=== PATIENT | male | born 1960 | race Caucasian/White ===

== ENCOUNTER 2018-04-12 21:03 | Inpatient (IN) ==
[2018-04-13] MEDS ORDERED: Acetaminophen 325 MG Tablet PO PRN (04:43)
[2018-04-13] MEDS ORDERED: Aluminum/Magnesium/Simethacone Susp 30 ML UDC PO PRN (04:43)
--- NOTE | 2018-04-13 09:03 | P.HPPSY ---
Provisional Diagnosis Admission Date: April 13, 2018 02:05 [place] I.: 1. Adjustment disorder with mixed disturbance of emotions and conduct Strongly suspect gestural overdose to facilitate admission to the inpatient unit Rule-out carolina tyshawn mood disorder Eve[place] II.: 1. Antisocial personality traits, rule-out Antisocial personality disorder Competence Certification of Person's Competence To Provide Express and Informed Consent I have personally examined Maco Bliss, a person being served at [facility] on, April 13, 2018 0903. Express and informed consent means consent voluntarily given in writing, by a competent person, after sufficient explanation and disclosure of the subject matter involved to enable the person to make a knowing and willful decision without any element of force, fraud, deceit, duress, or other form of constraint or coercion. This person is 18 years of age or older, is not now known to be incompetent to consent to treatment with a guardian advocate, and does not have a health care surrogate or proxy currently making medical treatment decisions. I have found this person to be one of the following: [x] Competent to provide express and informed consent, as defined above, for voluntary admission to this facility and is competent to provide express and informed consent for treatment. He/she has the consistent capacity to make well reasoned, willful, and knowing decisions concerning his or her medical or mental health treatment. The person fully and consistently understands the purpose of the admission for examination/placement and is fully capable of personally exercising all rights assured [place] Incompetent to provide express and informed consent to voluntary admission, and this is incompetent to provide express and informed consent to treatment. The person must be transferred to involuntary status and a petition for a guardian advocate filed with the Circuit Court. [] Refusing to provide express and informed consent to voluntary admission but is competent to provide express and informed consent for treatment. The person must be discharged or transferred to involuntary status. Form shall be completed within 24 hours of a person's arrival at the receiving facility and filed in the clinical record of each person: 1. Admitted on a voluntary basis 2. Permitted to provide express and informed consent to his/her own treatment 3. Allowed to transfer from involuntary to voluntary status 4. Prior to permitting a person to consent to his or her own treatment after having been previously found incompetent to consent to treatment. History of Present Illness Capacity: Has capacity Chief Complaint: Reported ingestion of trazodone. History of Present Illness: Mr. Bliss is a 57 year-old male with a reported history of depression who presents in transfer from [facility] under a Mathur Act. Documentation from outside hospital reviewed. Patient presented to outside hospital reporting overdose of 15 tabs of trazodone 150mg. However, it is unclear whether patient, in fact, made this ingestion, and it is noted in outside hospital record that there is "no altered level of consciousness" which alteration would be expected with a hypnotic overdose. Also present on the chart is a note that patient says that he wrote prior to the ingestion. I have reviewed this note. In part, it relates that the patient has "expended the last of my monetary resources which means as of checkout today I will be out on the street." Reviewing our electronic medical record, I see no previous psychiatric contact within our system. Patient seen and examined with nurse. Chart reviewed. Case discussed with nursing staff. No suicidality or homicidality noted while the patient has been under observation on the inpatient unit. On my examination today, patient presents as sarcastic and glib. He is a manipulative and vague historian. Antisocial personality traits are noted. He tells me that he ingested the trazodone because "I no longer care to live. I wanted to be by 51." He reports that he has tried to overdose 5 times before and says, when asked, that he once again chose a method that had failed in the past because "the pills would be painless, nothing to clean up. I wanna be courteous." Although he denies any urge to hurt himself on the inpatient unit, the patient assures me "if you set me free after the Mathur Act, I'll put those pills in my mouth at a higher dose." In context, this seems like a manipulative threat in order to remain on the unit longer. He reports low mood but has a paucity of depressive symptoms otherwise. He denies any audiovisual hallucinations. I can elicit no paranoia. No hypomanic or manic symptoms. The remainder of the psychiatric ROS is negative. No acute physical complaints. Past psychiatric history: The patient reports a history of depression. He is not under the care of a psychiatrist. The patient reports that he was most recently psychiatrically hospitalized at [facility] from March - April 2017. He reports 5 previous suicide attempts, all by overdose, and the patient notes that he made a small ingestion approximately 2 weeks ago. Patient reports that he has only ever been on Prozac and trazodone for his psychiatric issues. He does note that his Prozac dose has been as high as 60 mg daily in the past without additional benefit. Family history: The patient denies a family history of serious mental illness or suicide. Chemical dependency history: The patient reports that he drinks about 1/5 of vodka daily, although he notes that this is actually a reduction in consumption as he previously used to drink even more. He denies any consequences from his drinking. He denies any history of blackouts or DTs. He does not describe any history of withdrawal seizures although he does report a history of epilepsy. He says that his last drink was approximately 2 days ago but denies any withdrawal symptoms presently. He denies any significant period of sobriety from alcohol. He denies any other substance use. Social history: The [facility]. He is 4. He has 3 children. He is high school educated. He reports that he has worked for 35 years in the [employer] industry. He denies any history. Denies any legal history. Denies any access to guns or firearms. He tells me that he "pentecostalism[s] Lucifer." He denies any history of trauma. Past medical history: The patient reports a history of epilepsy, noting that he has "petit mal" seizures, and HTN. Medications: Amlodipine 5 mg daily Prozac 20 mg daily Trazodone 150 mg at bedtime as needed for sleep Keppra. Patient reports a dose of 2000mg BID but documentation from outside hospital indicated 1000mg BID ASA Allergies: Patient denies any allergies - Inpatient Certification I certify that the inpatient services were ordered in accordance with Medicare regulations governing the order. This includes certification that hospital inpatient services are reasonable and necessary and in the case of services not specified as inpatient-only under 42 CFR 419.22(n), that they are appropriately provided as inpatient services in accordance to with the 2-midnight benchmark under 43 CFR 412.3(e) I certify that inpatient psychiatric hospital services are medically necessary. Evaluation and treatment and/or diagnostic testing are expected to improve the patient's condition. The patient needs on a daily basis, active treatment furnished directly by or requiring the supervision of inpatient psychiatric facility personnel. Estimated Total Length of Stay (Days): 3 Plans for Post Hospital Care: Home Review of Systems All other systems reviewed negative except as stated in HPI [facility] - History History Provided By: Patient - Tobacco History Second Hand Smoke Exposure: No Smoking Status: Never smoker - Alcohol History How Often Do You Have a Drink Containing Alcohol: 4 or more times a week - Substance Use History Substance History: Active Abuse - Substance Use Type Alcohol Status: Active Route Used: By Mouth Frequency: Daily Reason for Use: Calm Down Comment: "I drink about a fifth a day." "My last drink was about 24 hours ago - Travel History Recent Travel in the [place] Within the Last 8 Weeks: No Recent Travel Out of the Country Within the Last 8 Weeks: No Quality Measures - Patient Strengths Patient's strengths (minimum of 2): Attending to basic needs. Verbally fluent. Medications and Allergies Active Medications: Active Medications Acetaminophen (Tylenol) 650 mg PO Q4H PRN PRN Reason: Pain 1-5 or Temp >101F Al Hydrox/Mg Hydrox/Simethicone (Mag-Al Plus Susp Liq) 30 ml PO Q6H PRN PRN Reason: DYSPEPSIA Al Hydroxide/Mg Hydroxide (Milk Of Magnesia Liq) 30 ml PO DAILY PRN PRN Reason: CONSTIPATION Amlodipine Besylate (Norvasc) 5 mg PO DAILY LUC Diphenhydramine HCl (Benadryl) 50 mg PO HS PRN PRN Reason: INSOMNIA Nicotine (Habitrol 21 Mg Patch.24 Hr) 1 patch T-DERMAL DAILY [facility] Patch Removal (Remove Old Patch) 1 each T-DERMAL DAILY [facility] Allergies Allergy/AdvReac Type Severity Reaction Status Date / Time No Known Allergies Allergy Verified 04/13/18 04:37 Home Medications Medication Instructions Recorded Confirmed Type amlodipine [Norvasc] 5 mg PO DAILY 04/13/18 04/13/18 History aspirin [Aspir-81] 81 mg PO DAILY 04/13/18 04/13/18 History fluoxetine 20 mg PO DAILY 04/13/18 04/13/18 History trazodone 150 mg PO PRN PRN MDD 150 04/13/18 04/13/18 History Results - Labs Labs: Laboratories from outside hospital reviewed: CBC unremarkable. CMP reveals mild hypokalemia at 3.4 and mildly elevated glucose at 128 in a nonfasting sample. Tylenol and salicylate level undetectable. Alcohol level undetectable. Urine toxicology negative. Exam Vital signs: Vital Signs 04/13/18 02:30 Temperature 98.0 F Pulse Rate 92 H Respiratory Rate 17 Blood Pressure 136/92 H Intake & Output 04/12/18 04/13/18 04/13/18 18:59 06:59 18:59 Other: Weight On Admission 97.4 kg Narrative: Physical exam completed by ED provider at outside hospital. On my examination today, the patient appears to be in no acute physical distress. No motor abnormalities noted. No ictal activity noted. No signs of intoxication or withdrawal noted. Labs and vital signs reviewed: Mental Status Examination Appearance: Appropriate Consciousness: Alert Orientation: x4 Motor Activity: Normal gait Speech: Unremarkable Language: Adequate Fund of Knowledge: Adequate Attention and Concentration: Adequate Memory: Unremarkable (Grossly intact on clinical exam) Mood: Other (Reports depressed) Affect: Appropriate (Full and reactive. Inconsistent with stated mood.) Thought Process & Associations: Intact, Logical, Goal directed, Linear Thought Content: Appropriate Hallucination Type: None Delusion Type: None Suicidal Ideation: Yes Suicidal Plan: Yes (Threats of suicide after discharge, manipulative) Suicidal Intention: No (Denies urge to hurt self on an inpatient unit) Homicidal Ideation: No Homicidal Plan: No Homicidal Intention: No Insight: Fair Judgment: Impulsive Assessment and Plan - Assessment (1) Adjustment disorder with mixed disturbance of emotions and conduct Code(s): F43.25 - Adjustment disorder with mixed disturbance of emotions and conduct Status: Acute - Plan Plan: 57-year-old male with psychiatric history as detailed above who presents in transfer from outside hospital under a Mathur act. Patient presented to outside hospital reporting trazodone overdose, although the veracity of this ingestion is unclear. He is a manipulative historian and exhibits antisocial personality traits. Although a carolina tyshawn mood disorder is in the differential, it seems more likely that the patient made (or perhaps simply reported) presenting ingestion to facilitate admission to the inpatient psychiatric unit as his housing was jeopardized. Indeed, he highlights his incipient homelessness in the note he reportedly wrote prior to this ingestion. It is also worth noting that the patient utilized a method of self-harm that he knows has proven unsuccessful for him in the past. Out of an abundance of caution, I will plan to admit the patient to the inpatient psychiatric unit for observation. Admit inpatient. I will retain the patient on the high acuity unit for closer monitoring as his antisocial personality style makes acting out a distinct possibility. Voluntary status. Discontinue Prozac and trazodone due to reported lack of effect. Initiate Remeron 15 mg at bedtime for reported dysphoria and sleep. Atarax as needed for anxiety, Benadryl as needed for insomnia. R/B/A for medications discussed with patient. I will continue the patient's amlodipine and aspirin. I will continue the patient's Keppra at the 1000 mg twice daily dose, and I have instructed the nurse to obtain the correct dosage for this medication from the patient's pharmacy and notify me once this is done. I will instituted seizure precautions. CIWA scale with Ativan for the management of any withdrawal. Vitals every shift. Counselor to see. Collateral information. Obtain records from previous hospitalization at [facility]. Disposition planning. Estimated length of stay: 3-5 days. Justification for Continued Inpatient Stay: Monitoring for impairment in safety Discharge Planning: Pending outcome of observation Request Healthcare Surrogate/Guardian Advocate?: No
[2018-04-13] MEDS ORDERED: LORazepam 1 MG Tablet PO PRN (09:06)
[2018-04-13] MEDS: Mirtazapine 15 MG Tablet PO SCH (20:24)
[2018-04-13] MEDS: levETIRAcetam 500 MG Tablet PO SCH (20:24)
[2018-04-14] MEDS: levETIRAcetam 500 MG Tablet PO SCH ×2 (09:53→20:40)
[2018-04-14] MEDS: Folic Acid 1 MG Tablet PO SCH (09:53)
[2018-04-14] MEDS: Multivitamin/Minerals Therapeutic Tablet PO SCH (09:54)
[2018-04-14] MEDS: amLODIPine 5 MG Tablet PO SCH ×2 (09:54→14:59)
[2018-04-14 11:14] LABS: Albumin 2.9 g/dL (3.4-5.0); Anion Gap 11 meq/L (5-15); Aspartate Aminotransferase 26 U/L (15-37); Blood Urea Nitrogen 11 mg/dL (7-18); Calcium 8.6 mg/dL (8.5-10.1); Carbon Dioxide 28.3 meq/L (21.0-32.0); Chloride 99 meq/L (98-107); Cholesterol 175 mg/dL (120-200); Glomerular Filtration Rate 71 mL/min (>89); Potassium 3.7 meq/L (3.5-5.1); Sodium 138 meq/L (136-145)
[2018-04-14 11:16] LABS: Glucose,Random 107 mg/dL (74-106)
[2018-04-14 11:27] LABS: Alanine Aminotransferase 27 U/L (12-78); Alkaline Phosphatase 71 U/L (45-117); Chol/HDL Ratio 3.83 Ratio; HDL Cholesterol 45.6 mg/dL (40.0-60.0); LDL Cholesterol,Calculated 106 mg/dL (0-99); Total Protein 6.4 g/dL (6.4-8.2); Triglycerides 115 mg/dL (42-150)
--- NOTE | 2018-04-14 13:50 | P.PNPSY ---
Subjective Chief Complaint: Reported ingestion of trazodone. Remarks: Patient seen and examined with nurse. Chart reviewed. Case discussed with nursing staff. No evidence of suicidality or other behavioral disturbance on the unit. Patient comes out of room for meals but otherwise does little on the unit per nursing staff. On my exam today, patient remains a vague historian. He tells me that he has a "general sense of depression" but denies any urge to hurt himself on the inpatient unit. Since impending lack of housing seems to have been a stressor leading to this hospitalization, we discuss his goals in this regard, and I have relayed these to the counselor. Complains of some mild morning grogginess associated with Remeron and says he also experienced transient mild perioral paresthesias. I do see paresthesias listed as a possible side effect from this medication; patient's calcium is normal. Patient is willing to give this medication more of a try. No other physical complaints. Vital Signs Temp Pulse Resp BP Pulse Ox 04/14/18 06:30 98.2 F 85 16 133/82 95 04/13/18 17:49 98.1 F 81 17 125/65 97 Intake and Output 04/13/18 04/14/18 04/14/18 22:59 06:59 14:59 Other: Weight 97.2 kg Laboratory Results - last 24 hr 04/14/18 09:20 Sodium 138 Potassium 3.7 Chloride 99 Carbon Dioxide 28.3 Anion Gap 11 BUN 11 Creatinine 1.08 Estimated GFR 71 L Random Glucose 107 H Calcium 8.6 Total Bilirubin 0.7 AST 26 ALT 27 Alkaline Phosphatase 71 Total Protein 6.4 Albumin 2.9 L Triglycerides 115 Cholesterol 175 LDL Cholesterol, Calc 106 H HDL Cholesterol 45.6 Cholesterol/HDL Ratio 3.83 Labs reviewed. Mildly decreased GFR noted. Hemoglobin A1c is pending. Review of Systems All other systems reviewed negative except as stated in HPI Mental Status Examination Appearance: Appropriate Consciousness: Alert Orientation: x4 Motor Activity: Other (No motor abnormalities noted) Speech: Unremarkable Language: Adequate Fund of Knowledge: Adequate Attention and Concentration: Adequate Memory: Unremarkable (Grossly intact on clinical exam) Mood: Other (low mood) Affect: Appropriate (Fairly full and reactive) Thought Process & Associations: Intact, Logical, Goal directed, Linear Thought Content: Appropriate Hallucination Type: None Delusion Type: None Suicidal Ideation: No Suicidal Plan: No Suicidal Intention: No Homicidal Ideation: No Homicidal Plan: No Homicidal Intention: No Insight: Fair Judgment: Impulsive Assessment and Plan - Assessment (1) Adjustment disorder with mixed disturbance of emotions and conduct Code(s): F43.25 - Adjustment disorder with mixed disturbance of emotions and conduct Status: Acute - Plan Plan: Continue Remeron as ordered. Continue to monitor on the inpatient unit. Continue other medications and care as ordered. Justification for Continued Inpatient Stay: Monitoring for impairment in safety, none noted Discharge Planning: Counselor to explore with patient whether some sort of housing/placement might be arranged. Request Healthcare Surrogate/Guardian Advocate?: No
[2018-04-14 16:27] LABS: Hemoglobin A1c 5.5 % (4.3-6.0)
[2018-04-14] MEDS: Mirtazapine 15 MG Tablet PO SCH (20:39)
--- NOTE | 2018-04-15 08:21 | P.PNPSY ---
Subjective Chief Complaint: Reported ingestion of trazodone. Remarks: Patient seen and examined with nurse. Chart reviewed. Requested records not available for my review at this time. Case discussed with nursing staff. Patient noted to be somewhat more social on the unit. Case discussed in treatment team. On my examination today, the patient describes his mood as " all right." He denies any suicidal ideation. He reports that he is experiencing vivid dreams, nightmares in fact, from his psychotropic medication , but he says that he is "happy to have them" noting that he has always enjoyed having nightmares since he was a child. No other medication side effects. No physical complaints. No recurrence of perioral paresthesia. Review of Systems All other systems reviewed negative except as stated in HPI Mental Status Examination Appearance: Appropriate Consciousness: Alert Orientation: x4 Motor Activity: Other (No abnormal motor movements noted) Speech: Unremarkable Language: Adequate Fund of Knowledge: Adequate Attention and Concentration: Adequate Memory: Unremarkable (Grossly intact on clinical exam) Mood: Other ("All right") Affect: Appropriate (Fairly full and reactive) Thought Process & Associations: Intact, Logical, Goal directed, Linear Thought Content: Appropriate Hallucination Type: None Delusion Type: None Suicidal Ideation: No Suicidal Plan: No Suicidal Intention: No Homicidal Ideation: No Homicidal Plan: No Homicidal Intention: No Insight: Adequate Judgment: Adequate Assessment and Plan - Assessment (1) Adjustment disorder with mixed disturbance of emotions and conduct Code(s): F43.25 - Adjustment disorder with mixed disturbance of emotions and conduct Status: Acute - Plan Plan: Continue to suspect secondary gain, possibly for prison. Continue Remeron as ordered. Continue to monitor on the inpatient unit. Continue other medications and care as ordered. Justification for Continued Inpatient Stay: Monitoring for impairment in safety, none noted Discharge Planning: Anticipate discharge Wednesday, possibly to sober living. Case discussed with counselor. Request Healthcare Surrogate/Guardian Advocate?: No
[2018-04-15] MEDS: levETIRAcetam 500 MG Tablet PO SCH ×3 (09:14→21:31)
[2018-04-15] MEDS: Multivitamin/Minerals Therapeutic Tablet PO SCH (09:16)
[2018-04-15] MEDS: amLODIPine 5 MG Tablet PO SCH (09:16)
[2018-04-15] MEDS: Folic Acid 1 MG Tablet PO SCH (09:17)
[2018-04-15] MEDS: Mirtazapine 15 MG Tablet PO SCH (21:31)
[2018-04-16] MEDS: levETIRAcetam 500 MG Tablet PO SCH ×2 (08:48→21:37)
[2018-04-16] MEDS: Multivitamin/Minerals Therapeutic Tablet PO SCH (08:49)
[2018-04-16] MEDS: Folic Acid 1 MG Tablet PO SCH (08:50)
[2018-04-16] MEDS: amLODIPine 5 MG Tablet PO SCH (08:50)
--- NOTE | 2018-04-16 14:11 | P.PNPSY ---
Subjective Chief Complaint: Reported ingestion of trazodone. Remarks: Pt seen and discussed with staff. Pt was admitted secondary to intentional OD with trazodone. Staff report that today he made statements that he now knows that he needs to use a higher number of pills for next overdose. He is compliant with medications. No SI/HI Mental Status Examination Appearance: Appropriate Consciousness: Alert Orientation: x4 Motor Activity: Other (No abnormal motor movements noted) Speech: Unremarkable Language: Adequate Fund of Knowledge: Adequate Attention and Concentration: Adequate Memory: Unremarkable (Grossly intact on clinical exam) Mood: Sad Affect: Flat Thought Process & Associations: Intact, Logical, Goal directed, Linear Thought Content: Appropriate Hallucination Type: None Delusion Type: None Suicidal Ideation: Yes Suicidal Plan: Yes (od) Suicidal Intention: No Homicidal Ideation: No Homicidal Plan: No Homicidal Intention: No Insight: Adequate Judgment: Adequate Assessment and Plan - Assessment (1) Adjustment disorder with mixed disturbance of emotions and conduct Code(s): F43.25 - Adjustment disorder with mixed disturbance of emotions and conduct Status: Acute - Plan Plan: continue current tx plan Justification for Continued Inpatient Stay: impairments in safety Request Healthcare Surrogate/Guardian Advocate?: No
[2018-04-16] MEDS: Mirtazapine 15 MG Tablet PO SCH (21:37)
[2018-04-17] MEDS: Folic Acid 1 MG Tablet PO SCH (11:12)
[2018-04-17] MEDS: levETIRAcetam 500 MG Tablet PO SCH ×2 (11:12→21:13)
[2018-04-17] MEDS: amLODIPine 5 MG Tablet PO SCH (11:12)
[2018-04-17] MEDS: Multivitamin/Minerals Therapeutic Tablet PO SCH (11:12)
--- NOTE | 2018-04-17 15:25 | P.PNPSY ---
Subjective Chief Complaint: Reported ingestion of trazodone. Remarks: Pt seen and discussed with staff. He remains depressed. He has been laying in bed for most of the day only coming out for meals. He endorses vague SI with no plan. Mental Status Examination Appearance: Appropriate Consciousness: Alert Orientation: x4 Motor Activity: Other (No abnormal motor movements noted) Speech: Unremarkable Language: Adequate Fund of Knowledge: Adequate Attention and Concentration: Adequate Memory: Unremarkable (Grossly intact on clinical exam) Mood: Sad Affect: Flat Thought Process & Associations: Intact, Logical, Goal directed, Linear Thought Content: Appropriate Hallucination Type: None Delusion Type: None Suicidal Ideation: Yes Suicidal Plan: Yes (od) Suicidal Intention: No Homicidal Ideation: No Homicidal Plan: No Homicidal Intention: No Insight: Adequate Judgment: Adequate Assessment and Plan - Assessment (1) Adjustment disorder with mixed disturbance of emotions and conduct Code(s): F43.25 - Adjustment disorder with mixed disturbance of emotions and conduct Status: Acute - Plan Plan: continue current tx plan Justification for Continued Inpatient Stay: risk of decompensation Request Healthcare Surrogate/Guardian Advocate?: No
[2018-04-17] MEDS: Mirtazapine 15 MG Tablet PO SCH (21:13)
[2018-04-18] MEDS: Folic Acid 1 MG Tablet PO SCH (09:39)
[2018-04-18] MEDS: Multivitamin/Minerals Therapeutic Tablet PO SCH (09:39)
[2018-04-18] MEDS: amLODIPine 5 MG Tablet PO SCH (09:39)
[2018-04-18] MEDS: levETIRAcetam 500 MG Tablet PO SCH ×2 (09:40→20:41)
--- NOTE | 2018-04-18 14:18 | P.PNPSY ---
Subjective Chief Complaint: Reported ingestion of trazodone. Remarks: Reviewed electronic medical record and discussed case with staff. Follow-up was conducted in patient's room with nurse present. Patient reports that he woke up every 2 hours last night. States that he is "still depressed". Of his appetite he replies, "I eat". He claims that he has had an increase in suicidal thoughts since arriving here. He seems somewhat behavioral as when I ask him if he has had thoughts of harming himself he replies, "harm? No, I want to kill myself not hurt myself". Mental Status Examination Appearance: Appropriate Consciousness: Alert Orientation: x4 Motor Activity: Other (No abnormal motor movements noted) Speech: Unremarkable Language: Adequate Fund of Knowledge: Adequate Attention and Concentration: Adequate Memory: Unremarkable (Grossly intact on clinical exam) Mood: Sad Affect: Flat Thought Process & Associations: Intact, Logical, Goal directed, Linear Thought Content: Appropriate Hallucination Type: None Delusion Type: None Suicidal Ideation: Yes Suicidal Plan: Yes (od) Suicidal Intention: No Homicidal Ideation: No Homicidal Plan: No Homicidal Intention: No Insight: Adequate Judgment: Adequate Assessment and Plan - Plan Plan: Nightly mirtazapine dose was increased from 15 mg to 30 mg. Continue with current treatment plan. Justification for Continued Inpatient Stay: Moving this patient to a less restrictive environment would likely result in decompensation. Request Healthcare Surrogate/Guardian Advocate?: No
[2018-04-18] MEDS: Mirtazapine 15 MG Tablet PO SCH (20:41)
[2018-04-19] MEDS: levETIRAcetam 500 MG Tablet PO SCH ×2 (09:05→20:37)
[2018-04-19] MEDS: amLODIPine 5 MG Tablet PO SCH (09:05)
--- NOTE | 2018-04-19 12:06 | P.PNPSY ---
Subjective Chief Complaint: Reported ingestion of trazodone. Remarks: Patient seen and examined with counselor and nurse. Chart reviewed. Records requested from previous hospitalizations still not received. Case discussed with nursing staff. Case discussed in treatment team. Counselor relates that patient has a bed at [facility] when he is ready for discharge. On my examination today, patient continues to complain of low mood. Affect somewhat blunted but does not seem particularly depressed. He says that his sleep was transiently improved following initiation of Remeron but has worsened again. He does not describe active suicidal ideation but issues barely veiled threats about further self-harm if he were discharged today. In context these threats seem fairly manipulative. No side effects from medications. No physical complaints. Vital Signs Temp Pulse Resp BP Pulse Ox 04/19/18 05:49 98.5 F 87 17 149/89 H 96 Labs reviewed. No new labs. Review of Systems All other systems reviewed negative except as stated in HPI Mental Status Examination Appearance: Appropriate Consciousness: Alert Orientation: x4 Motor Activity: Other (No motoric abnormalities noted) Speech: Unremarkable Language: Adequate Fund of Knowledge: Adequate Attention and Concentration: Adequate Memory: Unremarkable (Grossly intact on clinical exam) Mood: Other (Dysphoric) Affect: Blunt Thought Process & Associations: Intact, Logical, Goal directed, Linear Thought Content: Appropriate Hallucination Type: None Delusion Type: None Suicidal Ideation: Yes (If discharged today) Suicidal Plan: No Suicidal Intention: No Homicidal Ideation: No Homicidal Plan: No Homicidal Intention: No Insight: Adequate Judgment: Adequate Assessment and Plan - Assessment (1) Adjustment disorder with mixed disturbance of emotions and conduct Code(s): F43.25 - Adjustment disorder with mixed disturbance of emotions and conduct Status: Acute - Plan Plan: Continue to suspect some degree of symptom exaggeration +/- personality disorder. Patient and I discuss pharmacotherapeutic options for management of reported symptoms. I will augment the Remeron with Seroquel 50mg qHS to help with mood and sleep. Check EKG for QTc. I did educate the patient that antidepressant effect of Remeron will take on the order of several weeks to become evident. Re-request records from previous psychiatric hospitalizations. Continue to monitor on the inpatient unit. Continue other medications and care as ordered. Justification for Continued Inpatient Stay: Medication changes. Monitoring for impairment in safety, none noted. Discharge Planning: Pending stabilization Request Healthcare Surrogate/Guardian Advocate?: No
--- NOTE | 2018-04-19 19:46 | ECG ---
Date Performed: 04/19/2018 Time Performed: 17:42:05 PTAGE: 57 years EKG: Sinus rhythm WITH FIRST DEGREE AV BLOCK INCOMPLETE RIGHT BUNDLE BRANCH BLOCK SEPTAL MYOCARDIAL INFARCTION , OF IN DETERMINATE AGE ABNORMAL ECG NO PREVIOUS TRACING DOCTOR: Austen Nicholas Interpretating Date/Time 04/19/2018 19:45:34
[2018-04-19] MEDS: QUEtiapine 25 MG Tablet PO SCH (20:37)
[2018-04-19] MEDS: Mirtazapine 15 MG Tablet PO SCH (20:37)
[2018-04-20] MEDS: amLODIPine 5 MG Tablet PO SCH (08:40)
[2018-04-20] MEDS: levETIRAcetam 500 MG Tablet PO SCH ×2 (08:40→20:54)
[2018-04-20] MEDS ORDERED: QUEtiapine 25 MG Tablet PO ONE (13:08)
--- NOTE | 2018-04-20 13:08 | P.PNPSY ---
Subjective Chief Complaint: Reported ingestion of trazodone. Remarks: Patient seen and examined with nurse and counselor. Chart reviewed. Case discussed with nursing staff and counselor. On my exam, patient is visibly anxious. He apparently is apprehensive about possible discharge today. He tells me "I know I'm gonna try it again" referring to suicide. He says "in 48 hours I'll either end up back here or in the morgue." He further says "it's not that I wanna , I just don't want to live." Affect remains dysphoric. No psychotic symptoms. Denies any side effects from medications. No physical complaints. In particular denies any chest pain, shortness of breath. Vital Signs Temp Pulse Resp BP Pulse Ox 04/20/18 16:01 97.8 F 79 18 91/59 L 96 04/20/18 12:06 160/93 H 105 H 04/20/18 06:02 97.9 F 49 L 16 90/53 L 100 04/20/18 05:59 97.8 F 89 17 156/93 H 98 04/19/18 17:15 99 H 17 120/82 97 Labs reviewed. No new labs. EKG reveals sinus rhythm with first-degree AV block with a QTC of 407 ms, not prolonged. Review of Systems All other systems reviewed negative except as stated in HPI Mental Status Examination Appearance: Appropriate Consciousness: Alert Orientation: Person, Place (At least) Motor Activity: Other (No abnormal motor movements noted) Speech: Unremarkable Language: Adequate Fund of Knowledge: Adequate Attention and Concentration: Adequate Memory: Unremarkable (Grossly intact on clinical exam) Mood: Anxious, Other (Dysphoric) Affect: Anxious, Other (Dysphoric) Thought Process & Associations: Intact, Logical, Goal directed, Linear Thought Content: Appropriate Hallucination Type: None Delusion Type: None Suicidal Ideation: Yes (If discharged) Suicidal Plan: No Suicidal Intention: No Homicidal Ideation: No Homicidal Plan: No Homicidal Intention: No Insight: Adequate Judgment: Adequate Assessment and Plan - Assessment (1) Adjustment disorder with mixed disturbance of emotions and conduct Code(s): F43.25 - Adjustment disorder with mixed disturbance of emotions and conduct Status: Acute - Plan Plan: Patient does seem genuinely anxious about discharge today. However, his overall presentation still seems quite manipulative. I have expended considerable thought regarding patient's diagnosis and have taken great pains to avoid premature diagnostic closure. Differential at this point includes but is not limited to: malingering (although secondary gain is less clear, we have arranged for detention at sober living but patient persists in reporting symptoms) , personality disorder (likely along cluster B but perhaps with cluster C components), mood disorder, anxiety disorder. I have asked the counselor to obtain collateral information to try to clarify the diagnosis, and we are still waiting on records from previous hospitalizations. For the time being, I will titrate patient's Seroquel to 25/50mg and continue Remeron as ordered. Continue other medications and care as ordered. Justification for Continued Inpatient Stay: Monitoring for impairment in safety, none noted Discharge Planning: Pending stabilization Request Healthcare Surrogate/Guardian Advocate?: No
[2018-04-20] MEDS: Mirtazapine 15 MG Tablet PO SCH (20:54)
[2018-04-20] MEDS: QUEtiapine 25 MG Tablet PO SCH (20:54)
[2018-04-21] MEDS ORDERED: QUEtiapine 25 MG Tablet PO SCH (09:00)
[2018-04-21] MEDS: amLODIPine 5 MG Tablet PO SCH (10:33)
[2018-04-21] MEDS: levETIRAcetam 500 MG Tablet PO SCH ×2 (10:33→20:50)
--- NOTE | 2018-04-21 12:02 | P.DSPSY ---
Psychiatry Discharge Summary Inpatient Psychiatric care?: Yes Advance Directives: No Mental Health Advance Directive: No Health Care Proxy: No - Admission Admission Date: April 13, 2018 02:05 - Admission Diagnosis (1) Adjustment disorder with mixed disturbance of emotions and conduct Code(s): F43.25 - Adjustment disorder with mixed disturbance of emotions and conduct Brief History: Mr. Bliss is a 57 year-old male with a reported history of depression who presents in transfer from [facility] under a Mathur Act. Documentation from outside hospital reviewed. Patient presented to outside hospital reporting overdose of 15 tabs of trazodone 150mg. However, it is unclear whether patient, in fact, made this ingestion, and it is noted in outside hospital record that there is "no altered level of consciousness" which alteration would be expected with a hypnotic overdose. Also present on the chart is a note that patient says that he wrote prior to the ingestion. I have reviewed this note. In part, it relates that the patient has "expended the last of my monetary resources which means as of checkout today I will be out on the street." Reviewing our electronic medical record, I see no previous psychiatric contact within our system. Patient seen and examined with nurse. Chart reviewed. Case discussed with nursing staff. No suicidality or homicidality noted while the patient has been under observation on the inpatient unit. On my examination today, patient presents as sarcastic and glib. He is a manipulative and vague historian. Antisocial personality traits are noted. He tells me that he ingested the trazodone because "I no longer care to live. I wanted to be by 51." He reports that he has tried to overdose 5 times before and says, when asked, that he once again chose a method that had failed in the past because "the pills would be painless, nothing to clean up. I wanna be courteous." Although he denies any urge to hurt himself on the inpatient unit, the patient assures me "if you set me free after the Mathur Act, I'll put those pills in my mouth at a higher dose." In context, this seems like a manipulative threat in order to remain on the unit longer. He reports low mood but has a paucity of depressive symptoms otherwise. He denies any audiovisual hallucinations. I can elicit no paranoia. No hypomanic or manic symptoms. The remainder of the psychiatric ROS is negative. No acute physical complaints. Past psychiatric history: The patient reports a history of depression. He is not under the care of a psychiatrist. The patient reports that he was most recently psychiatrically hospitalized at [facility] from March - April 2017. He reports 5 previous suicide attempts, all by overdose, and the patient notes that he made a small ingestion approximately 2 weeks ago. Patient reports that he has only ever been on Prozac and trazodone for his psychiatric issues. He does note that his Prozac dose has been as high as 60 mg daily in the past without additional benefit. Family history: The patient denies a family history of serious mental illness or suicide. Chemical dependency history: The patient reports that he drinks about 1/5 of vodka daily, although he notes that this is actually a reduction in consumption as he previously used to drink even more. He denies any consequences from his drinking. He denies any history of blackouts or DTs. He does not describe any history of withdrawal seizures although he does report a history of epilepsy. He says that his last drink was approximately 2 days ago but denies any withdrawal symptoms presently. He denies any significant period of sobriety from alcohol. He denies any other substance use. Social history: The patient had [facility]. He is 4. He has 3 children. He is high school educated. He reports that he has worked for 35 years in the [employer] industry. He denies any history. Denies any legal history. Denies any access to guns or firearms. He tells me that he "anabaptist[s] Lucifer." He denies any history of trauma. Past medical history: The patient reports a history of epilepsy, noting that he has "petit mal" seizures, and HTN. Medications: Amlodipine 5 mg daily Prozac 20 mg daily Trazodone 150 mg at bedtime as needed for sleep Keppra. Patient reports a dose of 2000mg BID but documentation from outside hospital indicated 1000mg BID ASA Allergies: Patient denies any allergies Tobacco Use In Past 30 Days: No How Often Do You Have a Drink Containing Alcohol: 4 or more times a week Hospital Course: Patient was admitted to a locked, inpatient psychiatric unit. Appropriate precautions were in place throughout patient's hospital stay. Patient was seen and examined on the unit by psychiatry and also visited by counselor. Psychotropic medications were adjusted. We have observed the patient on the inpatient unit for over a week, and there has been absolutely no evidence of any suicidality or homicidality while on the inpatient unit. There has been no evidence of any self-care deficit. Efforts have been made to obtain collateral information without success. The patient is documented by the nurse overnight to have admitted that "I've spent more than 20 yrs becoming a master liar." He is by his own report seeking hospitalization at the [facility] because he is tired of being homeless. On the day of discharge: Patient seen and examined with nurse, Tone, and counselor, Morales. Chart reviewed. Case discussed with nurse and counselor. It is the unanimous opinion of the treatment team that the patient is malingering. On my examination today, patient presents as quite manipulative. He threatens that if we discharge him, he will cut an artery in his arm after he is discharged. He reiterates that he wants to be sent to the [facility]. Besides the patient's subjective complaint of low mood and poor sleep, I can elicit no depressive or hypomanic/ manic symptoms. He has no audiovisual hallucinations, nor does he exhibit any delusional material. Prominent antisocial personality traits are noted. When confronted with documented statements to nursing staff last night, the patient says that he meant he would lie by under-reporting symptoms. However, we have not observed any under-reporting of symptoms. It seems to this provider that this willingness to lie about psychiatric symptoms cuts both ways, and patient is instead suspected of malingering psychiatric symptoms. He has no medication side effects nor does he have any physical complaints. With the benefit of extended inpatient observation of the patient, it is this clinician's impression that the patient has an antisocial personality style and is malingering psychiatric symptoms for correction. Although considered in the differential diagnosis, there is no convincing evidence that the patient suffers from a [place] tyshawn mood illness or other [place] psychiatric condition, other than perhaps a substance use disorder. There is no evidence of imminent risk of suicide or violence as a consequence of a mental illness as defined under the Mathur Act, nor is there evidence of self-care deficit. The patient has maximized benefit from this inpatient psychiatric hospital stay. He continues to threaten suicide if discharged from the unit, but this is not expected to change because he is making these threats in service of obtaining correction. The patient is antisocial enough and is motivated enough in his desire for correction that it is possible that he will continue to malinger psychiatric symptoms after discharge and may even make some sort of self-harm gesture in service of obtaining correction once again on the inpatient unit. Averting this outcome is not a valid reason to retain the patient on the inpatient unit now, and indeed it would be counter-therapeutic to the patient's overall case to do so. I have counseled the patient against making some sort of self-harm gesture as, even if it is not done with suicidal intent, such a gesture can result in significant, if unintended, morbidity or mortality. I have counseled the patient regarding warning signs for need to return to the psychiatric emergency room as part of a general safety plan. Psychiatric follow -up as arranged by counselor. Patient is also to follow up with primary care. Regarding the discharge plan: Patient will be transported by hospital transport in the pre-machelle hours (per receiving program requirements) to dual diagnosis residential program operated by the [facility] in [place]. Counselor has worked with patient on this discharge plan and notes that patient seems more hopeful and is less threatening of self-harm after working on the plan, and so it is hoped that we have satisfied his desire for correction with this discharge plan and, in so doing, have reduced his risk for retributive or gestural self- harm. It had been my plan initially to prescribe a very limited quantity of medications (2 days with 4 refills) to reduce the risk of retributive or gestural overdose, but the program that the patient will be entering requires a 30-day supply of medications. Counselor has confirmed that program secures medications and has also arranged for superintendent transportation to deliver medications directly to program to be secured, such that patient will not have access to medications at any point. These arrangements having been made, I feel comfortable prescribing a 30-day supply of medications as the receiving program requires. - Discharge Discharge Date: 04/21/18 - Discharge Diagnosis (1) Malingering Diagnosis: Principal Code(s): Z76.5 - Malingerer [conscious simulation] Status: Acute (2) Adult antisocial behavior Diagnosis: Secondary Code(s): Z72.811 - Adult antisocial behavior Status: Acute Discharge Disposition: Residential treatment program - Discharge Instructions Discharge Diet: Regular Diet Activities You Can Perform: Weight Bearing As Tolerat Activities to Avoid: Bathing, Driving Additional Activity Instructions: Seizure precautions. - Discharge Time > 30 minutes Mental Status Examination Appearance: Appropriate Consciousness: Alert Orientation: Person, Place (at least), Situation Motor Activity: Other (No abnormal motor movements noted. No ictal activity noted. No signs of withdrawal noted.) Speech: Unremarkable Language: Adequate Fund of Knowledge: Adequate Attention and Concentration: Adequate Memory: Unremarkable (Grossly intact on clinical exam) Mood: Other (Dysphoric) Affect: Blunt Thought Process & Associations: Intact, Logical, Goal directed, Linear Thought Content: Appropriate Hallucination Type: None Delusion Type: None Suicidal Ideation: Yes (manipulative threats if discharged) Suicidal Plan: Yes (cut artery in arm) Suicidal Intention: No Homicidal Ideation: No Homicidal Plan: No Homicidal Intention: No Insight: Adequate Judgment: Adequate Discharge/Advance Care Plan - Results Vital Signs: Last Vital Signs Temp 97.8 F 04/20/18 16:01 Pulse 88 04/21/18 05:28 Resp 18 04/21/18 05:28 BP 127/80 04/21/18 05:28 Pulse Ox 96 04/21/18 05:28 Lab Results: Laboratory Results Hemoglobin A1c 5.5 % (4.3-6.0) 04/14/18 09:20 Triglycerides 115 mg/dL (42-150) 04/14/18 09:20 Cholesterol 175 mg/dL (120-200) 04/14/18 09:20 LDL Cholesterol, Calc 106 mg/dL (0-99) H 04/14/18 09:20 HDL Cholesterol 45.6 mg/dL (40.0-60.0) 04/14/18 09:20 Summary of Procedures: None done Pending Results: None - Medications Number of antipsychotic medications at discharge: 1 - Discharge Care Plan Goals to Promote Your Health: * To prevent worsening of your condition and complications * To maintain your health at the optimal level Directions to Meet Your Goals: Take your medications as prescribed Follow your dietary instruction Follow activity as directed Keep your appointments as scheduled Take your immunizations and boosters as scheduled If your symptoms worsen call your PCP, if no PCP go to Urgent Care Center or Emergency Room For 03/05 questions related to your inpatient stay or results of tests pending at discharge, please contact Dr. Justice Dodd MD at Smoking is Dangerous to Your Health. Avoid second hand smoking
[2018-04-21] MEDS: Mirtazapine 15 MG Tablet PO SCH (20:51)
[2018-04-21] MEDS: QUEtiapine 25 MG Tablet PO SCH (20:51)
== END 2018-04-22 06:30 | disposition home or self-care (01) ==
LOC: H270 04-13 02:05
PROVIDERS: ADMIT Psychiatry & Neurology Psychiatry; ATTEND Psychiatry & Neurology Psychiatry